=== PATIENT | female | born 1970 | race Caucasian/White ===

== ENCOUNTER 2016-12-21 15:31 | Outpatient (CLI) | payer BC | END 2016-12-21 15:32 | LOC: LABRHC 15:31 | PROVIDERS: ATTEND Physician Assistant | DX: N30.01 Acute cystitis with hematuria (principal) | CPT/HCPCS: 87086; 87186 ==

== ENCOUNTER 2017-08-22 16:14 | Outpatient (CLI) | payer BC | END 2017-08-22 16:30 | LOC: LABRHC 16:14 | PROVIDERS: ATTEND Physician Assistant | DX: R30.0 Dysuria (principal) | CPT/HCPCS: 87086; 87186 ==

== ENCOUNTER 2018-04-17 03:01 | Emergency (ER) | payer BC, OTHER ==
--- NOTE | 2018-04-17 03:22 | ED Physician Documentation ---
Female Urogenital Problems - HISTORIAN Historian: patient - HPI Stated Complaint: possible UTI Chief Complaint: Female Urogenital Problems Onset: days ago (1) Severity: mild Location of Pain: other (pain with urination ) Further Comments: yes (she states yesterday symptoms started yesterday with burning and urgency . She started to feel full and more symptoms overnight. her PCP cannot get her in for another day.) - Vaginal Bleeding Sexual History: active - Associated Symptoms Urinary Symptoms: blood in urine Discharge: denies: vaginal discharge - ROS CONST: none GI/: denies: nausea, vomiting - PAST HX Past History: none Allergies/Adverse Reactions: Allergies Allergy/AdvReac Type Severity Reaction Status Date / Time latex Allergy Verified 04/17/18 03:24 Home Medications: Ambulatory Orders Medication Instructions Recorded Amlodipine Besylate 5 mg PO DAILY u2 12/21/16 Citalopram Hydrobromide [Celexa] 40 mg PO DAILY 12/21/16 Atenolol [Tenormin] 50 mg PO DAILY 01/06/17 Clonidine HCl 0.1 mg PO BID 01/06/17 Hydrochlorothiazide 25 mg PO DAILY 01/06/17 Metformin HCl [Glucophage] 1,000 mg PO BID u2 01/06/17 - SOCIAL HX Smoking History: non-smoker Alcohol Use: none Drug Use: none - FAMILY HX Family History: none - REVIEWED ASSESSMENTS Nursing Assessment Reviewed: Yes Vitals Reviewed: Yes Female Urogenital Problems - EXAM General Appearance: no acute distress, alert EENT: eye inspection normal Respiratory: no resp. distress, breath sounds nml CVS: reg rate & rhythm, heart sounds normal Abdomen: soft, non-tender, no distention, other (pain over bladder with palpation ) Back: non-tender. No: CVA tenderness Skin: color nml, no rash, warm,dry Extremities: non-tender Neuro: oriented X3 Discharge Clincal Impression: UTI (urinary tract infection) Qualifiers: Urinary tract infection type: site unspecified Hematuria presence: with hematuria Qualified Code(s): N39.0 - Urinary tract infection, site not specified; R31.9 - Hematuria, unspecified Referrals: Anne Marie Price MD [Primary Care Provider] - 2 Days Comments: 1. Cipro 500 mg Take 1 by mouth twice daily x 10 days 2. Pyridium 200 mg take 1 by mouth three times per day x 3 days 3. Increase water intake 4. Empty bladder when needed 5. See PCP IN 2-4 days if no improvement 6. Return to ER for any concerns Condition: Stable Disposition: 01 HOME, SELF-CARE Decision to Admit: NO Date of Decison to Admit: 04/17/18 Decision Time: 03:29
[2018-04-17 03:25] VITALS: BP 158/79
[2018-04-17] MEDS: PHENAZOPYRIDINE HCL 200 MG TABLET PO ONE (03:30)
[2018-04-17] MEDS: CIPROFLOXACIN HCL 500 MG TABLET PO ONE (03:30)
[2018-04-17 08:41] LABS: APPEARANCE,URINE CLOUDY (CLEAR); COLOR,URINE AMBER (YELLOW); OCCULT BLOOD,URINE 3+ (NEGATIVE); UROBILINOGEN URINE 0.2 Eu (0.2-1.0)
== END 2018-04-17 03:40 | disposition home or self-care (01) ==
LOC: ED 03:01
DX: R31.9 Hematuria, unspecified (principal)
CPT/HCPCS: 81002; 87086; 87186